=== PATIENT | male | born 1955 | race Caucasian/White ===

== ENCOUNTER 2019-01-09 14:18 | Outpatient (CLI) | payer BC ==
--- NOTE | 2019-01-09 16:17 | MRI ---
MRI OF THE PELVIS WITH AND WITHOUT IV CONTRAST: 01/09/19 INDICATION: History of elevated PSAs and a prostate biopsy and diagnosis of prostate cancer. COMPARISON: None. TECHNIQUE: Multiplanar and multisequence MR images were obtained of the pelvis with and without contrast. Erasto solisng 20 mL of Multihance for the examination. The examination was interpreted at a separate [facility] work station for multiparametric evaluation. FINDINGS: There are residual areas of hemorrhage within the peripheral zone as well as central prostate gland c onsistent with patient's prior biopsy. The presence of hemorrhage slightly limits sensitivity of the diffusion weighted images and detection of restricted diffusion, particularly in the peripheral zone. There is prominent heterogeneous T2 hypointensity seen within the peripheral zone mixed in with the h emorrhage without evidence of overt restricted diffusion. No abnormal dynamic contrast enhancement i s seen within the peripheral zone. There are numerous well encapsulated BPH nodules seen within the central gland. No suspicious lesion is evident on the T2 weighted images. The prostate gland measures 5.4 x 4.2 x 4.7 cm. A total prostatic volume of 53.24 cm. There is thickening of the bladder wall likely reflecting sequela of chronic bladder outlet obstructi on. There is a small left sided bladder diverticulum measuring 1.2 cm off the left lateral bladder wa ll. There is scattered colonic diverticula. No pathologically enlarged lymph nodes are evident. There are fat containing inguinal hernias bilater ally. No marrow signal abnormality is grossly evident. IMPRESSION: 1. PI-RADS category 2 - low (clinically significant cancer is unlikely to be present). 2. Some limitation to the exam due to the presence of residual hemorrhage within the peripheral zone and central zone of the prostate gland. 3. Findings of chronic bladder outlet obstruction with a left sided bladder wall diverticulum. 4. Colonic diverticulosis. 5. Fat containing bilateral inguinal hernias. 6. No lymphadenopathy seen within the pelvis. POS: [facility]
== END 2019-01-09 14:19 | disposition home or self-care (01) ==
LOC: TBSIIMAG 14:18
PROVIDERS: ATTEND Urology
DX: C61 Malignant neoplasm of prostate (principal); K57.30 Diverticulosis of large intestine without perforation or abscess without bleeding; K40.20 Bilateral inguinal hernia, without obstruction or gangrene, not specified as recurrent
CPT/HCPCS: 72197; 82565

== ENCOUNTER 2019-04-06 06:18 | Outpatient (CLI) | payer BC ==
[2019-04-06 09:20] LABS: Hemoglobin 15.8 g/dL (14.0-18.0); Mean Corpuscular HGB CONC 32.7 g/dL (32.0-36.0); Mean Corpuscular Hemoglobin 29.7 pg (27.0-31.0); Mean Corpuscular Volume 90.9 fL (78.0-98.0); Mean Platelet Volume 7.2 fL (7.4-10.4); Platelet Count 233 thou/uL (130-400); RBC Distribution Width 11.5 % (11.5-14.5); Red Blood Cell (RBC) Count 5.33 mill/uL (4.70-6.10); White Blood Cell (WBC) Count 5.3 thou/uL (4.8-10.8)
[2019-04-06 09:27] LABS: Prothrombin Time 13.4 SEC (12.0-14.7)
[2019-04-06 09:58] LABS: ALT (SGPT) 33 U/L (8-55); AST (SGOT) 19 U/L (5-34); Albumin 4.4 g/dL (3.4-4.8); Alkaline Phosphatase 87 U/L (40-110); Anion Gap 11 mmol/L (10-20); BUN (Urea Nitrogen) 15 mg/dL (8.4-25.7); Bilirubin, Total 0.7 mg/dL (0.2-1.2); Calc. Creatinine Clearance 0 mL/min (70-130); Calcium 9.3 mg/dL (7.8-10.44); Carbon Dioxide 28 mmol/L (23-31); Chloride 107 mmol/L (98-107); Estimated GFR-MDRD 73; Globulin 2.2 g/dL (2.4-3.5); Glucose 90 mg/dL (80-115); Potassium 4.1 mmol/L (3.5-5.1); Protein, Total 6.6 g/dL (5.8-8.1); Sodium 142 mmol/L (136-145)
--- NOTE | 2019-04-08 16:22 | EKG ---
Test Reason : Blood Pressure : / mmHG Vent. Rate : 081 BPM Atrial Rate : 081 BPM P-R Int : 198 ms QRS Dur : 066 ms QT Int : 358 ms P-R-T Axes : 026 065 070 degrees QTc Int : 415 ms Normal sinus rhythm Possible old anterior infarct When compared with ECG of 21-OCT-2016 12:20, No significant change was found Confirmed by DR. Yandy NAJERA ([id number]) on 04/08/2019 4:22:19 PM Referred By: MATT Confirmed By:DR. Yandy NAJERA
== END 2019-04-06 06:19 | disposition home or self-care (01) ==
LOC: LABBT 06:18
PROVIDERS: ATTEND Urology
DX: Z01.818 Encounter for other preprocedural examination (principal); C61 Malignant neoplasm of prostate
CPT/HCPCS: 80053; 85027; 85610; 85730; 93005; 93010

== ENCOUNTER 2019-04-12 06:36 | Day surgery (SDC) | payer BC ==
[2019-04-06 08:26] VITALS: BMI 27.0
[2019-04-06 09:24] LABS: Bacteria/HPF None Seen HPF (None Seen); Bilirubin Negative (Negative); Blood, Urine Negative (Negative); Clarity Clear (Clear); Glucose, Urine (Dipstick) Normal (Negative); Leukocyte Negative Leu/uL (Negative); Nitrite Negative (Negative); Protein, Urine (Dipstick) Negative (Neg-Trace); RBC/HPF 0-3 HPF (0-3); Squamous Epithelial None Seen HPF (0-3); Urobilinogen Normal mg/dL (Less than 2); WBC/HPF 0-3 HPF (0-3)
[2019-04-06 09:37] LABS: Sperm/HPF Rare HPF (None Seen)
[2019-04-12] MEDS ORDERED: Fentanyl 100 MCG/2 ML VIAL ONE (07:43)
[2019-04-12] MEDS ORDERED: Bupivacaine PF 0.5% 30 ML VIAL ONE ×2 (07:43→07:44)
[2019-04-12] MEDS ORDERED: Midazolam HCl 2 mg/2 ml Vial ONE (07:43)
[2019-04-12] MEDS ORDERED: cefOXitin 2 GM VIAL ONE (08:03)
[2019-04-12] MEDS ORDERED: Gentamicin Sulfate 80 MG in Premix Bag 1 BAG IVPB SCH (09:15)
[2019-04-12] MEDS ORDERED: cefOXitin Sodium/Dextrose,Iso 1 GM in Premix Bag 1 BAG IVPB SCH (09:15)
[2019-04-12] MEDS ORDERED: Lidocaine 1% PF 5 ML VIAL ONE (10:05)
== END 2019-04-12 14:30 | disposition home or self-care (01) ==
LOC: SURG A 06:36 → UNDOADMIN 06:36 → SDC 06:36 → EDSTATUS 08:00 → SDC 14:30 → UNDODISIN 14:30
PROVIDERS: ATTEND Urology
DX: C61 Malignant neoplasm of prostate (principal); Z53.8 Procedure and treatment not carried out for other reasons; Z79.82 Long term (current) use of aspirin; Z79.899 Other long term (current) drug therapy
CPT/HCPCS: 81001; 86850; 86900; 86901; J0694; J2001; J2250; J3010; S0020

== ENCOUNTER 2019-04-26 06:00 | Inpatient (IN) | payer BC ==
[2019-04-26] MEDS ORDERED: Fentanyl 100 MCG/2 ML VIAL ONE ×2 (06:12→06:55)
[2019-04-26] MEDS ORDERED: Midazolam HCl 2 mg/2 ml Vial ONE ×2 (06:12→06:55)
[2019-04-26] MEDS ORDERED: HYDROmorphone 0.5 MG/0.5 ML SYRINGE ONE (06:12)
[2019-04-26] MEDS ORDERED: Lidocaine 2% Jelly 5 ML TUBE ONE (06:12)
[2019-04-26] MEDS ORDERED: Phenylephrine HCL 10 MG/ML VIAL ONE (06:13)
[2019-04-26] MEDS ORDERED: Ketamine 50 MG/ML (10ML VIAL) ONE (07:02)
[2019-04-26] MEDS ORDERED: Gentamicin 80 MG/2 ML VIAL ONE (07:05)
[2019-04-26] MEDS ORDERED: cefOXitin Sodium/Dextrose,Iso 1 GM in Premix Bag 1 BAG IVPB SCH (07:15)
[2019-04-26] MEDS ORDERED: cefOXitin 2 GM VIAL ONE (09:23)
[2019-04-26] MEDS ORDERED: Albumin 5% 0 ML ONE (11:08)
[2019-04-26] MEDS ORDERED: Albumin 5% 250 ML ONE (11:10)
[2019-04-26] MEDS ORDERED: B & O ONE (11:22)
[2019-04-26] MEDS ORDERED: Rocuronium Bromide 10 MG/ML (10ML VIAL) ONE (12:34)
[2019-04-26] MEDS ORDERED: PROPOFOL 200 MG/20 ML VIAL ONE (12:34)
[2019-04-26] MEDS ORDERED: PHENYLEPHRINE-NS 100 MCG/ML 10 ML SYRINGE ONE (12:34)
[2019-04-26] MEDS ORDERED: Bupivacaine HCl 0.5%/Epinephrine 1:200,000/PF 30 ml Vial ONE (12:34)
[2019-04-26] MEDS ORDERED: Ondansetron PF 4 MG/2 ML Vial ONE (12:34)
[2019-04-26] MEDS ORDERED: ePHEDrine/0.9% NaCl/PF SYRINGE 50 mg/10 ml ONE (12:34)
[2019-04-26] MEDS ORDERED: Vecuronium 10 MG VIAL ONE (12:34)
[2019-04-26] MEDS ORDERED: Glycopyrrolate 0.2 MG/ML 5 ML SYRINGE ONE (12:34)
[2019-04-26] MEDS ORDERED: Dexamethasone 20 MG/5 ML VIAL ONE (12:34)
[2019-04-26] MEDS ORDERED: Promethazine HCl 25 MG/ML VIAL IM PRN (13:01)
[2019-04-26] MEDS ORDERED: Promethazine HCl 25 MG/ML VIAL SLOW IVP PRN (13:01)
[2019-04-26] MEDS ORDERED: Ondansetron HCl/PF 4 MG/2 ML Vial IVP PRN (13:01)
[2019-04-26] MEDS ORDERED: HYDROmorphone 2 MG/ML VIAL SLOW IVP PRN (13:01)
[2019-04-26 13:19] LABS: #Lymphocytes 0.5 thou/uL (1.20-3.40); #Monocytes 0.5 thou/uL (0.11-0.59); #Neutrophils 11.3 thou/uL (1.40-6.50); %Basophils 0.1 % (0.0-1.0); %Eosinophils 0.1 % (0.0-10.0); %Lymphocytes 3.9 % (21.0-51.0); %Monocytes 4.4 % (0.0-10.0); %Neutrophils 91.6 % (42.0-75.0); Hemoglobin 12.8 g/dL (14.0-18.0); Mean Corpuscular HGB CONC 32.6 g/dL (32.0-36.0); Mean Corpuscular Hemoglobin 29.4 pg (27.0-31.0); Mean Corpuscular Volume 90.4 fL (78.0-98.0); Platelet Count 201 thou/uL (130-400); RBC Distribution Width 11.3 % (11.5-14.5); Red Blood Cell (RBC) Count 4.35 mill/uL (4.70-6.10); White Blood Cell (WBC) Count 12.3 thou/uL (4.8-10.8)
[2019-04-26 13:39] LABS: Anion Gap 14 mmol/L (10-20); BUN (Urea Nitrogen) 14 mg/dL (8.4-25.7); Calc. Creatinine Clearance 0 mL/min (70-130); Calcium 8.4 mg/dL (7.8-10.44); Carbon Dioxide 21 mmol/L (23-31); Chloride 108 mmol/L (98-107); Estimated GFR-MDRD 64; Glucose 174 mg/dL (80-115); Sodium 139 mmol/L (136-145)
--- NOTE | 2019-04-26 14:53 | OP ---
DATE OF PROCEDURE: 04/26/2019 SERVICES: Urology. PREOPERATIVE DIAGNOSIS: Prostate cancer. POSTOPERATIVE DIAGNOSIS: Prostate cancer. PROCEDURE PERFORMED: Robot assisted laparoscopic prostatectomy with bilateral pelvic lymph node dissection with nerve sparing bilaterally. INDICATIONS FOR PROCEDURE: Mr. Cooper is a 63-year-old white male with history of prostate cancer diagnosed by prostate biopsy, [place] 3 + 4 with a PSA of 5.4. We discussed options and he elected for prostatectomy. We also discussed nerve-sparing with slightly high risk of positive margins. He stated that he wanted to attempt nerve-sparing if feasible. All risks and benefits of the surgery were discussed and he has agreed to proceed forward. DESCRIPTION OF PROCEDURE: After identification of armband and verification of consent, patient was brought back to the operating room, where he underwent general anesthesia with endotracheal intubation. He did follow the ERAS protocol. He was then placed in the low lithotomy position with the bed in Trendelenburg and then prepped and draped in usual sterile fashion. A 16-Palauan Viramontes was placed sterilely on the field. A Veress needle entry was used at the umbilicus to insufflate the belly under high-flow and low pressure until pneumoperitoneum had been achieved. An incision was made below the umbilicus with a 12-mm camera port. This was used to gain entry into the peritoneum and camera inspection demonstrated the peritoneum was feasible and suitable for prostatectomy. There were no vascular bowel injuries noted. The additional ports were placed under direct vision with a 15 mm port on the patient's right along with an 11 mm automotive service assistant port and a 5 mm automotive service assistant port and on the left two 8 mm robotic ports. The robot was then docked, and the robotic portion of the surgery was commenced. Anterior incision was made in the rectovesical space until the seminal vesicles and vas deferens were identified. These were dissected with monopolar cautery, taking care to minimize cautery or use sharp dissection with blunt dissection only at the tips of the seminal vesicles to avoid thermal injury to the pedicles in nerve sparing sections. The posterior space was then developed behind the prostate along Denonvilliers fascia up to the midportion of the prostate. A Surgicel was left in this location and then the bladder was dropped by making incisions along lateral to the medial umbilical ligaments on both sides. The space of Retzius was entered and dissected free from the surrounding tissues until the pubic arch could be seen. The medial umbilical ligaments were then cauterized and divided and the bladder dropped by dissecting along the loose areolar tissue between the bladder and the rectus sheath until the pubic arch was identified. The entire pubic arch was cleared out and the periprostatic space was developed bluntly with monopolar cautery. The preprostatic fat was removed off the prostate and sent off for routine pathologic evaluation. The endopelvic fascias were then entered sharply and the periprostatic space developed on either side of the prostate, taking care to not use any cautery to avoid any thermal injury to the nerves. The puboprostatic ligaments were divided with monopolar cautery. Once the DVC was isolated, the vascular stapler was brought in on the robot and used to clamp down on the DVC. The catheter was tested by removal and re-entry to ensure that the urethra was not clamped and then the DVC was divided. The bladder neck was then dissected free between the prostate and bladder all the way down to the previously dissected space for the seminal vesicles using monopolar cautery and bipolar cautery. Once the seminal vesicles were identified, they were brought up and the posterior space further developed. The nerve-sparing portion was then commenced by dissecting along the capsule of the prostate on both sides and sweeping the neurovascular tissues laterally so that they would be away from harm all the way up to the apex of the prostate. The vessel sealer was used on the thicker part of the pedicle where the main trunks of the prostatic arteries came in for sealing and then from there sharp dissection was carried out for the remainder of the pedicles underneath the prostate all the way up to the apex with cold saline used any time touch monopolar was necessary to cauterize any exposed vessels. Once dissection was carried up to the prostate, the urethra was identified and dissected free, taking care not used any cautery near the neurovascular bundles. The urethra was then cut sharply until the catheter was exposed. Then the catheter was withdrawn and the remainder of the urethra was divided. The rectourethralis muscle was then divided using a combination of sharp dissection and Bovie electrocautery taking great care to ensure that the rectum behind had been moved away before any thermal energy was used. This did release the entire prostate, which was then deposited into the right paracolic gutter. The neurovascular bundles could be seen on either side of the prostate and there was only mild oozing noted. The entire pelvis was filled up with saline and then the rectum tested by insufflating the rectum with air using a 16-Palauan Viramontes red rubber catheter and a Ellie syringe. There was no bubbles released indicating no rectal injury. The irrigation was then sucked out and the Surgicel placed onto the rectum on any oozing areas which had now stopped. Lymph node dissections were then carried out on both sides using the margins being the circumflex femoral vein anteriorly, obturator nerve posteriorly, iliac vein cephalad, and pubic arch posteriorly on both sides and these tissues were then deposited next to the prostate for later retrieval. There was no significant bleeding noted upon completion. A Mazin stitch was then placed using a 2-0 V-Loc suture through the rectourethralis in the base of the bladder to reapproximate the urethra and the bladder neck. The anastomosis was then performed with a 2-0 V-Loc suture in a running fashion circumferentially around the bladder neck and urethra. This allowed for easy passage of the final 18-Palauan Viramontes catheter into the bladder. The bladder was leak tested, and no leaks were identified. 15 mL of sterile water was placed into the balloon. A #19 RAFFY drain was then brought in and placed posterior to the bladder. Saba and Tisseel were then sprayed around the pelvis, pubic arch, and lymph node dissection areas. The specimens were all then placed into an Endopouch bag for retrieval. The robot was then undocked and the suture from the Endopouch was transferred to the camera port. Then #11 and 15 port sites were closed with a Honorio-Jason and a 0 Vicryl. The specimen was extracted through the umbilical incision by extending the incision laterally until the specimen could be retrieved. The fascia was then closed using a [id number] interrupted 0 Vicryl on UR6 needles until the entire fascia was reapproximated and there were no defects noted. The skin was closed on all locations using a 4-0 Monocryl in a subcuticular fashion and 2-0 nylon was used to secure the drain. The patient had a 16-A B and O suppository inserted by the surgeon and the catheter was irrigated, which came back clear. The patient was then taken out of positioning, awakened, and taken to PACU for recovery in stable condition. COMPLICATIONS: None. ESTIMATED BLOOD LOSS: 175 mL. ROUTINE TUBES AND DRAINS: 18-Palauan Viramontes catheter and #19 RAFFY drain. SPECIMENS: Prostate, bilateral seminal vesicles and vas deferens, bilateral pelvic lymph nodes and preprostatic fat. DISPOSITION: The patient will be admitted to the hospital for postoperative recovery. I will discharge him once he has fully recovered and we will handle the surveillance on an outpatient basis. Job ID: [id number]
[2019-04-26] MEDS ORDERED: Oxybutynin 5 MG TAB PO PRN (15:03)
[2019-04-26] MEDS ORDERED: diphenhydrAMINE 25 MG CAP PO PRN (15:03)
[2019-04-26] MEDS ORDERED: Ondansetron PF 4 MG/2 ML Vial IVP PRN (15:03)
[2019-04-26] MEDS ORDERED: oxyCODONE 5 MG TAB PO PRN ×2 (15:03)
[2019-04-26] MEDS ORDERED: hydrALAZINE 20 MG/ML VIAL SLOW IVP PRN (15:03)
[2019-04-26] MEDS ORDERED: Hyoscyamine Sulfate SL 0.125 mg Tablet SL PRN (15:03)
[2019-04-26] MEDS ORDERED: Sodium Chloride 0.9% 1,000 ML IV SCH (15:03)
[2019-04-26] MEDS ORDERED: Fentanyl 100 MCG/2 ML VIAL SLOW IVP PRN (15:03)
[2019-04-26] MEDS ORDERED: Mag-Al 1200 mg/1200 mg/30 ML UDCUP PO PRN (15:03)
[2019-04-26] MEDS: cefOXitin 1.5 GM in Sodium Chloride 0.9% 100 ML IVPB SCH ×2 (17:22→23:06)
[2019-04-26] MEDS: traMADol HCl 50 MG TAB PO SCH ×2 (17:28→23:05)
[2019-04-26] MEDS: Acetaminophen 500 MG TAB PO SCH ×2 (17:29→23:05)
[2019-04-26] MEDS: Docusate 100 MG CAP PO SCH (20:21)
[2019-04-26] MEDS ORDERED: Atorvastatin Calcium 40 MG TAB PO SCH (21:00)
[2019-04-26] MEDS: Ketorolac Tromethamine 30 MG/ML VIAL IVP SCH (23:05)
[2019-04-27] MEDS: Ketorolac Tromethamine 30 MG/ML VIAL IVP SCH (05:13)
[2019-04-27] MEDS: Acetaminophen 500 MG TAB PO SCH ×2 (05:13→12:38)
[2019-04-27] MEDS: traMADol HCl 50 MG TAB PO SCH ×2 (05:14→12:38)
[2019-04-27 05:46] LABS: #Monocytes 1.2 thou/uL (0.11-0.59); #Neutrophils 10.7 thou/uL (1.40-6.50); %Basophils 0.4 % (0.0-1.0); %Eosinophils 0.1 % (0.0-10.0); %Lymphocytes 7.3 % (21.0-51.0); %Monocytes 9.6 % (0.0-10.0); %Neutrophils 82.7 % (42.0-75.0); Hemoglobin 13.2 g/dL (14.0-18.0); Mean Corpuscular HGB CONC 32.7 g/dL (32.0-36.0); Mean Corpuscular Hemoglobin 29.5 pg (27.0-31.0); Mean Corpuscular Volume 90.1 fL (78.0-98.0); Mean Platelet Volume 7.4 fL (7.4-10.4); Platelet Count 223 thou/uL (130-400); RBC Distribution Width 11.5 % (11.5-14.5); Red Blood Cell (RBC) Count 4.47 mill/uL (4.70-6.10)
[2019-04-27 06:01] LABS: Anion Gap 14 mmol/L (10-20); BUN (Urea Nitrogen) 13 mg/dL (8.4-25.7); Calc. Creatinine Clearance 0 mL/min (70-130); Calcium 8.1 mg/dL (7.8-10.44); Carbon Dioxide 22 mmol/L (23-31); Chloride 108 mmol/L (98-107); Estimated GFR-MDRD 85; Glucose 110 mg/dL (80-115); Potassium 4.2 mmol/L (3.5-5.1); Sodium 140 mmol/L (136-145)
[2019-04-27 07:46] VITALS: BMI 27.0
[2019-04-27 08:17] VITALS: TEMP 97.8
[2019-04-27] MEDS: Docusate 100 MG CAP PO SCH (09:56)
[2019-04-27] MEDS: cefOXitin 1.5 GM in Sodium Chloride 0.9% 100 ML IVPB SCH (09:56)
[2019-04-27 13:09] VITALS: BP 127/78
--- NOTE | 2019-04-30 09:41 | DIS ---
DATE OF ADMISSION: 04/26/2019 DATE OF DISCHARGE: 04/27/2019 ADMITTING DIAGNOSIS: Prostate cancer. DISCHARGE DIAGNOSIS: Prostate cancer. PROCEDURE PERFORMED: While inpatient, robot-assisted laparoscopic prostatectomy. BRIEF HISTORY: Mr. Cooper is a 63-year-old white male with grade group 2 prostate cancer. He had elected for robotic prostatectomy, which is why he is coming in today for his surgery. The full H and P can be found in the scanned portion of the [employer] system. HOSPITAL COURSE: After surgery (please see operative note for details), the patient was admitted to the hospital for postoperative recovery. He had a RAFFY drain and a Viramontes catheter. His pain was relatively well controlled. He did have some nausea on postoperative day zero, but this soon passed. He was able to proceed to a regular diet on postoperative day #1. His pain was very well controlled. He was able to get up and walk around. He was able to take care of his catheter, which was relatively clear. His RAFFY only put out approximately 100 mL overnight and was removed on postoperative day #1. He was tolerating both clears and regular diet. His labs looked good and the patient was discharged to home. DISPOSITION: Discharged to home. DISCHARGE CONDITION: Good. DISCHARGE MEDICATIONS: Include resuming all of his home medications except Flomax. He will also be given [place] 5/325 mg 1 to 2 tabs p.o. q.4 hours p.r.n. for pain, Colace 100 mg p.o. b.i.d., oxybutynin 5 mg p.o. t.i.d. p.r.n. for bladder spasms, and levofloxacin 500 mg x1 to take on the day of his followup. He will come back and see me in approximately 10 days for a voiding trial. All discharge instructions were explained to the patient and he had an opportunity to ask all questions. Job ID: [id number]
== END 2019-04-27 13:36 | disposition home or self-care (01) | DRG 708 ==
LOC: SURG A 06:00 → SURG B 15:03
PROVIDERS: ADMIT Urology; ATTEND Urology
PROC: 0VT04ZZ Resection of Prostate, Percutaneous Endoscopic Approach (ICD-10-PCS; principal; 2019-04-26)
PROC: 0VT34ZZ Resection of Bilateral Seminal Vesicles, Percutaneous Endoscopic Approach (ICD-10-PCS; 2019-04-26)
PROC: 07BC4ZX Excision of Pelvis Lymphatic, Percutaneous Endoscopic Approach, Diagnostic (ICD-10-PCS; 2019-04-26)
PROC: 8E0W4CZ Robotic Assisted Procedure of Trunk Region, Percutaneous Endoscopic Approach (ICD-10-PCS; 2019-04-26)
PROC: 0VBQ4ZZ Excision of Bilateral Vas Deferens, Percutaneous Endoscopic Approach (ICD-10-PCS; 2019-04-26)
DX: C61 Malignant neoplasm of prostate (principal); I10 Essential (primary) hypertension; E78.5 Hyperlipidemia, unspecified; I25.10 Atherosclerotic heart disease of native coronary artery without angina pectoris; Z95.1 Presence of aortocoronary bypass graft
CPT/HCPCS: 36415; 80048; 85025; 86850; 86900; 86901; 88309; J0670; J0694; J1100; J1170; J1580; J1885; J2250; J2370; J2405; J2704; J3010; J3490; P9045